=== PATIENT | female | born 1955 | race Hispanic/Latino ===

== ENCOUNTER → 2019-08-07 | Outpatient (CLI) | payer OTHER | END | disposition home or self-care (01) | LOC: RAH 13:26 | PROVIDERS: ATTEND Family Medicine | DX: Z12.31 Encounter for screening mammogram for malignant neoplasm of breast (principal) | CPT/HCPCS: 77067 ==

== ENCOUNTER → 2021-10-06 | Outpatient (CLI) | payer OTHER | END | disposition home or self-care (01) | LOC: RAH 09:01 | PROVIDERS: ATTEND Family Medicine | DX: Z12.31 Encounter for screening mammogram for malignant neoplasm of breast (principal) | CPT/HCPCS: 77067 ==

== ENCOUNTER → 2022-10-11 | Outpatient (CLI) | payer OTHER | END | disposition home or self-care (01) | LOC: RAH 10:27 | PROVIDERS: ATTEND Family Medicine | DX: Z12.31 Encounter for screening mammogram for malignant neoplasm of breast (principal); R92.1 Mammographic calcification found on diagnostic imaging of breast; Z98.890 Other specified postprocedural states | CPT/HCPCS: 77067 ==

== ENCOUNTER → 2023-12-05 | Outpatient (CLI) | payer OTHER | END | disposition home or self-care (01) | LOC: RAH 09:26 | PROVIDERS: ATTEND Family Medicine | DX: Z12.31 Encounter for screening mammogram for malignant neoplasm of breast (principal); R92.333 Mammographic heterogeneous density, bilateral breasts | CPT/HCPCS: 77067 ==

== ENCOUNTER 2024-10-26 09:09 | Observation (INO) | payer OTHER ==
[~2024-10-26] VITALS: Ht 165.1 cm; Wt 119.5 kg
[2024-10-26 09:59] VITALS: TEMP 101.1
[2024-10-26] MEDS: acetaMINOPHEN 500 MG TABLET PO ONE (09:59)
[2024-10-26 10:01] LABS: BASOPHILS # (AUTO) 0.09 K/uL (0.00-0.20); BASOPHILS % (AUTO) 0.5 % (0.0-5.0); EOSINOPHILS # (AUTO) 0.11 K/uL (0.00-0.70); EOSINOPHILS % (AUTO) 0.6 % (0.0-8.0); HEMATOCRIT 37.3 % (36-48); IMMATURE GRANULOCYTE ABSOLUTE 0.18 K/uL (0-1); LYMPHOCYTES # (AUTO) 1.2 K/uL (1.0-4.8); LYMPHOCYTES % (AUTO) 6.1 % (21.0-51.0); MEAN CORPUSCULAR HEMOGLOBIN 30.5 pg (27.0-33.0); MEAN CORPUSCULAR HGB CONC 33.5 g/dL (32.0-36.0); MONOCYTES # (AUTO) 1.2 K/uL (0.1-1.0); MONOCYTES % (AUTO) 5.9 % (3.0-13.0); NEUTROPHILS # (AUTO) 16.9 K/uL (1.8-7.7); PLATELET COUNT (AUTO) 300 K/uL (130-400); RED CELL DISTRIBUTION WIDTH 13.8 % (11.0-15.5); WHITE BLOOD COUNT (AUTO) 19.7 K/uL (4.8-10.8)
[2024-10-26 10:09] LABS: CREATININE 0.9 mg/dL (0.5-1.0); POTASSIUM 3.9 mmol/L (3.5-5.1)
[2024-10-26 10:10] LABS: RAPID GROUP A STREP negative (NEGATIVE)
[2024-10-26 10:12] LABS: SARS-CoV-2, RNA, NAAT NEGATIVE SARS CoV-2 (NEGATIVE)
[2024-10-26 10:19] LABS: INFLUENZA TYPE A Negative For Type A (NEGATIVE); INFLUENZA TYPE B Negative For Type B (NEGATIVE)
[2024-10-26] MEDS: 0.9%NACL 1000ML 1,000 ML IV ONE (10:40)
[2024-10-26 11:37] LABS: APPEARANCE,URINE CLEAR (CLEAR); BILIRUBIN,URINE NEGATIVE (NEGATIVE); COLOR,URINE YELLOW (YELLOW); GLUCOSE, URINE (UA) 300 mg/dL (NEGATIVE); KETONES,URINE 20 mg/dL (NEGATIVE); LEUKOCYTE ESTERASE ,URINE 250 Leu/uL (NEGATIVE); NITRATE,URINE NEGATIVE (NEGATIVE); OCCULT BLOOD,URINE NEGATIVE (NEGATIVE); PH,URINE 5.5 (5.0-8.0); PROTEIN,URINE NEGATIVE (NEGATIVE); UROBILINOGEN,URINE 0.2 mg/dL (0.2-1.0)
[2024-10-26 11:39] LABS: ADD UA MICROSCOPIC YES
[2024-10-26 11:40] LABS: BACTERIA,URINE RARE /HPF (None Seen); MUCUS,URINE RARE LPF (None Seen); RBC,URINE 0-1 /HPF (0-1); SQUAMOUS EPITHELIAL CELL,UR FEW /HPF (0-2)
--- NOTE | 2024-10-26 11:46 | ERN ---
General Chief Complaint: Fever Stated Complaint: HEADACHE, FEVER Time Seen by MD: 09:18 Source: patient History of Present Illness Initial Comments PATIENT IS A 69-YEAR-OLD FEMALE COMING IN TO BE EVALUATED FOR FEVER. PER PATIENT SHE HAS BEEN HAVING BODY ACHES HE HAS BEEN FOR A COUPLE OF DAYS. NO OTHER CURRENT COMPLAINT. Allergies: Coded Allergies: sulfamethoxazole (Unverified Allergy, Unknown, 10/26/24) trimethoprim (Unverified Allergy, Unknown, 10/26/24) Past Medical History Past Medical History: Asthma, Diabetes-Type II, High Cholesterol, Hypertension Past Surgical History: Other Surgical History Other: HERNIA ROS Dictation CONSTITUTIONAL: NO CHILLS, FEVER, NO WEAKNESS, NO DIAPHORESIS, NO MALAISE. HEAD/FACE: NO SIGNS OF TRAUMA. EENT: NO EYE PAIN, NO BLURRED VISION, NO TEARING, NO DOUBLE VISION, NO EAR PAIN, NO EAR DISCHARGE, NO NOSE PAIN, NO NASAL CONGESTION, NO THROAT PAIN, NO THROAT SWELLING, NO MOUTH PAIN. RESPIRATORY: NO COUGH, NO ORTHOPNEA, NO SOB, NO STRIDOR, NO WHEEZING. CARDIOVASCULAR: NO CHEST PAIN, NO EDEMA, NO PALPITATIONS, NO SYNCOPE. GASTROINTESTINAL/ABDOMINAL: NO ABDOMINAL PAIN, NO CONSTIPATION, NO DIARRHEA, NO NAUSEA, NO VOMITING. GENITOURINARY: NO ABNORMAL DISCHARGE, NO DYSURIA, NO FREQUENT URINATION, NO HEMATURIA. NO COMPLAINTS OF PAIN IN THE GENITALS. MUSCULOSKELETAL: NO BACK PAIN, NO GOUT, NO JOINT PAIN, NO JOINT SWELLING, NO MUSCLE PAIN, NO MUSCLE STIFFNESS, NO NECK PAIN. INTEGUMENTARY: NO CHANGE IN COLOR, NO CHANGE IN HAIR/NAILS, NO DRYNESS, NO LESION, NO LUMPS, NO RASH. NEUROLOGICAL/PSYCH: NO ANXIETY, NOT DEPRESSED, NO EMOTIONAL PROBLEM, NO HEADACHE, NO NUMBNESS, NO PRE-EXISTING DEFICIT, NO HISTORY OF SEIZURES, NO TREMORS, NO WEAKNESS. HEMATOLOGIC/LYMPHATIC: NOT ANEMIC, NO HISTORY OF BLOOD CLOTS, NO APPARENT BLEEDING, NO BRUISING, GLANDS NOT SWOLLEN. ALL SYSTEMS NEGATIVE, EXCEPT NOTED. Physical Exam Physical Exam Dictation VITAL SIGNS: REVIEWED. GENERAL APPEARANCE: ALERT, ORIENTED X3, NO ACUTE DISTRESS, OBESE. HEAD AND FACE: NON-TRAUMATIC. EYES: PERRL, PINK CONJUNCTIVAS, EYELID NO TRAUMA, ANTERIOR CHAMBER CLEAR. EARS: PINNAS INTACT AND NO SIGNS OF TRAUMA OR ERYTHEMA. EAR CANALS CLEAR AND NO DISCHARGE. TMS NO ERYTHEMA. NOSE: NO DISCHARGE, NO BLEEDING. OROPHARYNX: MOUTH NORMAL, TEETH NO CARIES, TONGUE PINK. PHARYNX CLEAR, NO ERYTHEMA. TONSILS NO EXUDATES, NO ABSCESSES NOTED. MUCOUS MEMBRANE MOIST. NECK: SUPPLE, NON-TENDER, NO THYROMEGALY, NO MASSES, NO JVD, NO BRUITS. BREAST: DEFERRED. CHEST: NO TENDERNESS, NO CREPITUS, NO PARADOXICAL MOVEMENT, NO RETRACTIONS. LUNGS: CLEAR, WELL-VENTILATED, SYMMETRIC, NO RALES, NO WHEEZING, NO RHONCHI, NO STRIDOR, GOOD BREATH SOUNDS BILATERALLY. HEART: REGULAR RATE, REGULAR RHYTHM, NO MURMUR, NO GALLOPS. VASCULAR: NO PERIPHERAL EDEMA. ABDOMEN: SOFT, POSITIVE BOWEL SOUNDS, NONDISTENDED, NO GUARDING, NONTENDER, NO REBOUND, NO MASSES NO HEPATOMEGALY, NO SPLENOMEGALY, NO STANLEY'S SIGN, NO HERNIAS. RECTAL: DEFERRED. GENITAL: DEFERRED. NEUROLOGICAL: NORMAL SPEECH, GROSS MOTOR FUNCTION INTACT, GROSS SENSORY FUNCTION INTACT. MUSCULOSKELETAL: NECK NONTENDER, FULL RANGE OF MOTION, BACK NONTENDER, FULL RANGE OF MOTION. EXTREMITIES: NONTENDER, FULL RANGE OF MOTION. SKIN: COLOR PINK, DRY, NO TURGOR, NO RASH, NO LACERATIONS, NO ABRASIONS, NO CONTUSIONS. LYMPHATICS: DEFERRED. Results Laboratory and Microbiology Lab and Micro Result Laboratory Tests Test 10/26/24 09:34 10/26/24 09:35 10/26/24 11:23 White Blood Count 19.7 K/uL (4.8-10.8) H Red Blood Count 4.10 MIL/uL (4.00-5.50) Hemoglobin 12.5 g/dL (12.0-16.0) Hematocrit 37.3 % (36-48) Mean Corpuscular Volume 91.0 fL (79-99) Mean Corpuscular Hemoglobin 30.5 pg (27.0-33.0) Mean Corpuscular Hemoglobin Concent 33.5 g/dL (32.0-36.0) Red Cell Distribution Width 13.8 % (11.0-15.5) Platelet Count 300 K/uL (130-400) Mean Platelet Volume 10.2 fL (7.5-10.5) Immature Granulocyte % (Auto) 0.9 % (0-1) Neutrophils (%) (Auto) 86.0 % (40.0-77.0) H Lymphocytes (%) (Auto) 6.1 % (21.0-51.0) L Monocytes (%) (Auto) 5.9 % (3.0-13.0) Eosinophils (%) (Auto) 0.6 % (0.0-8.0) Basophils (%) (Auto) 0.5 % (0.0-5.0) Neutrophils # (Auto) 16.9 K/uL (1.8-7.7) H Lymphocytes # (Auto) 1.2 K/uL (1.0-4.8) Monocytes # (Auto) 1.2 K/uL (0.1-1.0) H Eosinophils # (Auto) 0.11 K/uL (0.00-0.70) Basophils # (Auto) 0.09 K/uL (0.00-0.20) Absolute Immature Granulocyte (auto 0.18 K/uL (0-1) Nucleated Red Blood Cells 0.0 % (0.0-0.19) White Cell Morphology Comment See comments Sodium Level 138 mmol/L (136-145) Potassium Level 3.9 mmol/L (3.5-5.1) Chloride Level 103 mmol/L (101-111) Carbon Dioxide Level 25 mmol/L (21-32) Blood Urea Nitrogen 26 mg/dL (7-18) H Creatinine 0.9 mg/dL (0.5-1.0) Glomerular Filtration Rate Calc 68 mL/min (>90) Random Glucose 228 mg/dL (70-105) H Total Calcium 8.6 mg/dL (8.5-10.1) Influenza Type A Antigen Negative For Type A Influenza Type B Antigen Negative For Type B SARS-CoV-2, RNA, NAAT NEGATIVE SARS CoV-2 Group A Streptococcus Rapid negative (NEGATIVE) Urine Color YELLOW (YELLOW) Urine Appearance CLEAR (CLEAR) Urine pH 5.5 (5.0-8.0) Urine Specific [place] 1.020 (1.001-1.031) Urine Protein NEGATIVE mg/dL (NEGATIVE) Urine Glucose (UA) 300 mg/dL (NEGATIVE) H Urine Ketones 20 mg/dL (NEGATIVE) H Urine Occult Blood NEGATIVE (NEGATIVE) Urine Nitrate NEGATIVE (NEGATIVE) Urine Bilirubin NEGATIVE mg/dL (NEGATIVE) Urine Urobilinogen 0.2 mg/dL (0.2-1.0) Urine Leukocyte Esterase 250 [place]/uL (NEGATIVE) H Urine RBC 0-1 /HPF (0-1) Urine WBC 11-25 /HPF (0-1) H Urine Squamous Epithelial Cells FEW /HPF (0-2) Urine Bacteria RARE /HPF (None Seen) MDM MDM: DIFFERENTIAL DIAGNOSIS: SEPSIS, FEVER, RATIONALE: TESTS CONSIDERED AND ORDERED SECONDARY TO SHARED DECISION MAKING INCLUDE: LABS, ECG AND RADIOLOGY PREVIOUS OUTSIDE RECORDS REVIEWED: OLD ER VISITS. RISK OF COMPLICATION AND/OR MORBIDITY OR MORTALITY OF PATIENT MANAGEMENT: NONE MEDICATIONS-PER MEDICATION RECONCILIATION NEED FOR HOSPITALIZATION: PATIENT DOES MEET CRITERIA FOR HOSPITALIZATION. NEED FOR EMERGENCY MAJOR/MINOR SURGERY: NO THERE ARE NO SOCIAL CONCERNS WITH THIS PATIENT. PRESCRIPTION DRUG MANAGEMENT PRESCRIPTIONS WILL INCLUDE SYMPTOMATIC CARE PATIENT'S PRIOR EXTERNAL MEDICAL RECORDS FROM OTHER ER VISITS WERE REVIEWED BY ME INDICATED. PRIOR TESTING AND RESULTS FROM PREVIOUS VISITS WERE REVIEWED. PRIOR TESTS WERE TAKEN INTO ACCOUNT WITH MEDICAL DECISION MAKING AND RESOURCE UTILIZATION, INDEPENDENT HISTORIAN/HISTORIANS WERE USED TO OBTAIN COMPLETE MEDICAL HISTORY. I INDEPENDENTLY INTERPRETED THE TEST THAT WERE PERFORMED, RESULTS WERE REVIEWED BY ME AND CONSIDERED FINDINGS ON RADIOLOGY IF ORDERED. MEDICAL MANAGEMENT AND EXAMINATION INTERPRETATION DISCUSSIONS WERE HAD BY ME WITH OTHER QUALIFIED HEALTHCARE PROFESSIONALS INDICATED FOR THE PATIENT'S CARE. PATIENT WILL BE ADMITTED UNDER THE CARE OF [facility] FOR ONGOING MANAGEMENT. ED Course Orders Procedure Category Date Status Time Cbc With Differential LAB 10/26/24 Complete 09:21 Blood Cult JAVIER 10/26/24 In Process 09:21 Urinalysis Profile LAB 10/26/24 Complete 09:21 Basic Metabolic Panel LAB 10/26/24 Complete 09:40 Covid Rna Naat LAB 10/26/24 Complete 09:41 Rapid (Group A Strep) LAB 10/26/24 Complete 09:41 0.9%Nacl 1000ml (Ns PHA 10/26/24 Complete 1000ml) 10:00 Acetaminophen 500mg PHA 10/26/24 Complete Tab (Tylenol 500mg T 10:00 Influenza Type A & B, LAB 10/26/24 Complete Rapid 09:51 Chest 1vw RAD 10/26/24 Resulted 11:07 Culture Urine JAVIER 10/26/24 In Process 11:39 Ceftriaxone 1g Vial PHA 10/26/24 Complete (Rocephine 1g Inj) 12:00 Current Medications Medications (Trade) Dose Ordered Sig/Zahraa Route PRN Reason Start Time Stop Time Status Last Admin Dose Admin Acetaminophen (TYLenol 500MG TAB) 500 mg ONCE ONCE PO 10/26/24 10:00 10/26/24 10:01 DC 10/26/24 09:59 Ceftriaxone Sodium (ROCEphine 1G INJ) 1 gm ONCE ONCE IVPB 10/26/24 12:00 10/26/24 12:01 DC 10/26/24 12:13 Sodium Chloride 1,000 ml @ 0 mls/hr ONCE ONCE IV 10/26/24 10:00 10/26/24 10:01 DC 10/26/24 10:40 Vital Signs Date Time Temp Pulse Resp B/P (MAP) Pulse Ox O2 Delivery O2 Flow Rate FiO2 10/26/24 10:41 99.7 116 18 102/55 96 Room Air* 0 21 10/26/24 09:59 101.1 10/26/24 09:27 101.1 133 22 127/70 96 Room Air* 0 21 10/26/24 09:14 100.2 129 20 138/65 96 Room Air 0 Critical Care Note Comments CRITICAL CARE PROCEDURE NOTE AUTHORIZED AND PERFORMED BY: ME TOTAL CRITICAL CARE TIME: APPROXIMATELY 36 MINUTES DUE TO A HIGH PROBABILITY OF CLINICALLY SIGNIFICANT, LIFE THREATENING DETERIORATION, THE PATIENT REQUIRED MY HIGHEST LEVEL OF PREPAREDNESS TO INTERVENE EMERGENTLY AND I PERSONALLY SPENT THIS CRITICAL CARE TIME DIRECTLY AND PERSONALLY MANAGING THE PATIENT. THIS CRITICAL CARE TIME INCLUDED OBTAINING A HISTORY; EXAMINING THE PATIENT; PULSE OXIMETRY; ORDERING AND REVIEW OF STUDIES; ARRANGING URGENT TREATMENT WITH DEVELOPMENT OF A MANAGEMENT PLAN; EVALUATION OF PATIENT'S RESPONSE TO TREATMENT; FREQUENT REASSESSMENT; AND, DISCUSSIONS WITH OTHER PROVIDERS. THIS CRITICAL CARE TIME WAS PERFORMED TO ASSESS AND MANAGE THE HIGH PROBABILITY OF IMMINENT, LIFE-THREATENING DETERIORATION THAT COULD RESULT IN MULTI-ORGAN FAILURE. IT WAS EXCLUSIVE OF SEPARATELY BILLABLE PROCEDURES AND TREATING OTHER PATIENTS AND TEACHING TIME. PLEASE SEE MDM SECTION AND THE REST OF THE NOTE FOR FURTHER INFORMATION ON PATIENT ASSESSMENT AND TREATMENT. DX & DISP Disposition: Inpatient Decision to Admit Time: 13:23 Departure Impression: Primary Impression: Sepsis Additional Impression: UTI (urinary tract infection) Condition: Stable Referrals: JHONNY RILEY DO (PCP) GUSTAVO DEUTSCH MD Oct 26, 2024 11:45
--- NOTE | 2024-10-26 12:02 | HMCIMG ---
CHEST 1VW REASON: FEVER COMPARISON: None. FINDINGS: Single view of the chest was obtained. Lungs are clear. Heart size is normal. There is no pulmonary vascular congestion. Mediastinum and bony thorax appear unremarkable. IMPRESSION: 1. Normal single view chest x-ray.
[2024-10-26] MEDS: cefTRIAXone 1G VIAL IVPB ONE (12:13)
[2024-10-26] MEDS ORDERED: LACTULOSE 20 GM/30 ML UDCUP PO PRN (13:30)
[2024-10-26] MEDS ORDERED: DiphenhydrAMINE HCL 25 MG CAPSULE PO PRN (13:30)
[2024-10-26] MEDS ORDERED: ARTIFICAL TEARS SOL 15 ML OP PRN (13:30)
[2024-10-26] MEDS ORDERED: MAG/ALUM/SIMETH 30 ML UDCUP PO PRN (13:30)
[2024-10-26] MEDS ORDERED: acetaMINOPHEN 325 MG TAB PO PRN (13:30)
[2024-10-26] MEDS ORDERED: guaiFENesin-DM 200/20MG 10ML PO PRN (13:30)
[2024-10-26] MEDS ORDERED: BENZOCAINE/MENTH/CETYLPYRD CL 1 EACH LOZENGE MM PRN (13:30)
[2024-10-26] MEDS ORDERED: doCUSate SODIUM 100 MG CAP PO PRN (13:30)
[2024-10-26] MEDS ORDERED: polyETHYLene GLYCol 3350 17 GM POWD.PACK PO PRN (13:30)
[2024-10-26] MEDS ORDERED: guaiFENesin SUGAR-FREE 100 MG/5 ML UDCUP PO PRN (13:30)
[2024-10-26] MEDS ORDERED: ondanSETRON 4MG INJ IV PRN (13:30)
[2024-10-26] MEDS ORDERED: LIDOCAINE HCL 2% VISCOUS 30 ML, MAG/ALUM/SIMETH 30ML 30 ML, DICYCLOMINE HCL 20 MG PO PRN (13:30)
[2024-10-26] MEDS ORDERED: DiphenhydrAMINE HCL 50 MG/ML VIAL IV PRN (13:30)
[2024-10-26] MEDS ORDERED: NITROGLYCERIN 0.4 MG SL TAB SL PRN (13:30)
[2024-10-26] MEDS ORDERED: LIDOCAINE HCL 2% VISCOUS 15 ML UDCUP PO PRN ×2 (14:00)
[2024-10-26] MEDS ORDERED: DICYCLOMINE HCL 10 MG/5 ML ML PO PRN ×2 (14:00)
[2024-10-26 14:27] LABS: THYROID STIMULATING HORMONE 1.04 uIU/mL (0.36-3.74)
--- NOTE | 2024-10-26 14:56 | HP ---
[facility] HISTORY & PHYSICAL Date Patient Seen: Oct 26, 2024 Time of Visit: 14:47 Supervising Physician: [Dr. Dodson] Primary Care Physician: [Dr. Marybel Mueller] Outpatient Specialists: [ ] Inpatient Consults: [ ] PROBLEM LIST: Sepsis without septic shock, POA Acute complicated cystitis, POA Febrile illness, POA Leukocytosis, POA Urinary incontinence, treated outpatient Insulin dependent type 2 diabetes mellitus, uncontrolled GERD Hypertension Hyperlipidemia Plan: Start Rocephin 2 g daily Start NS at 75 mL an hour Order lactic acid, procalcitonin Follow blood and urine culture, adjust antibiotics as needed Resume home meds once available Repeat labs in AM Further management per hospital course DCP home once medically cleared HPI: [This is a 69-year-old female with a history of diabetes, hypertension, hyperlipidemia who presents to the ED for evaluation of fever, body aches and chills of onset at 3:00 a.m. today. Patient reported a headache that was relieved with Tylenol in the ED. she had associated nausea but no vomiting. Patient was found septic with leukocytosis with a WBC of 19 on admission. Septic protocol initiated in ED. COVID, flu and strep screens were negative. Her urinalysis showed leukocyte esterase, pending blood and urine cultures. She continues with treatment per septic protocol. Upon evaluation, patient appears weak, complained of headache and some nausea but otherwise denied vomiting or abdominal pain.] PAST MEDICAL HX: see above PAST SURGICAL HX: noncontributory SOCIAL HISTORY: No tobacco, ETOH, or illicit drug use Coded Allergies: sulfamethoxazole (Unverified Allergy, Unknown, 10/26/24) trimethoprim (Unverified Allergy, Unknown, 10/26/24) REVIEW OF SYSTEMS: 12 point ROS reviewed with patient. Pertinent positives mentioned above. Ot herwise negative. PHYSICAL EXAM: GENERAL: alert, weak, awake oriented x 3, morbidly obese HEENT: EOMI, Sclera non icteric, moist mucosa NECK: Supple, no JVD, trachea midline LUNGS: Clear breath sounds bilaterally. No wheezes HEART: Regular rate and rhythm. Normal S1 and S2, without murmurs ABD: Abdomen soft, suprapubic tenderness. Bowel sounds present EXT: No clubbing cyanosis or edema NEURO: Alert and oriented to person, follows commands Vital Signs (last 8hr) Date Time Temp Pulse Resp B/P (MAP) Pulse Ox O2 Delivery O2 Flow Rate FiO2 10/26/24 10:41 99.7 116 18 102/55 96 Room Air* 0 10/26/24 09:59 101.1 10/26/24 09:27 101.1 133 22 127/70 96 Room Air* 0 10/26/24 09:14 100.2 129 20 138/65 96 Room Air 0 LABS: Hematology Labs: Test 10/26/24 09:34 Range/Units White Blood Count 19.7 H 4.8-10.8 K/uL Red Blood Count 4.10 4.00-5.50 MIL/uL Hemoglobin 12.5 12.0-16.0 g/dL Hematocrit 37.3 36-48 % Mean Corpuscular Volume 91.0 79-99 fL Mean Corpuscular Hemoglobin 30.5 27.0-33.0 pg Mean Corpuscular Hemoglobin Concent 33.5 32.0-36.0 g/dL Red Cell Distribution Width 13.8 11.0-15.5 % Platelet Count 300 130-400 K/uL Mean Platelet Volume 10.2 7.5-10.5 fL Immature Granulocyte % (Auto) 0.9 0-1 % Neutrophils (%) (Auto) 86.0 H 40.0-77.0 % Lymphocytes (%) (Auto) 6.1 L 21.0-51.0 % Monocytes (%) (Auto) 5.9 3.0-13.0 % Eosinophils (%) (Auto) 0.6 0.0-8.0 % Basophils (%) (Auto) 0.5 0.0-5.0 % Neutrophils # (Auto) 16.9 H 1.8-7.7 K/uL Lymphocytes # (Auto) 1.2 1.0-4.8 K/uL Monocytes # (Auto) 1.2 H 0.1-1.0 K/uL Eosinophils # (Auto) 0.11 0.00-0.70 K/uL Basophils # (Auto) 0.09 0.00-0.20 K/uL Absolute Immature Granulocyte (auto 0.18 0-1 K/uL Nucleated Red Blood Cells 0.0 0.0-0.19 % White Cell Morphology Comment See comments Chemistry Labs: Test 10/26/24 13:53 10/26/24 09:34 Range/Units Lactic Acid Level 2.2 0.8-2.5 mmol/L Procalcitonin 0.18 0.05-0.5 ng/mL Thyroid Stimulating Hormone (TSH) 1.04 0.36-3.74 uIU/mL Sodium Level 138 136-145 mmol/L Potassium Level 3.9 3.5-5.1 mmol/L Chloride Level 103 101-111 mmol/L Carbon Dioxide Level 25 21-32 mmol/L Blood Urea Nitrogen 26 H 7-18 mg/dL Creatinine 0.9 0.5-1.0 mg/dL Glomerular Filtration Rate Calc 68 >90 mL/min Random Glucose 228 H 70-105 mg/dL Total Calcium 8.6 8.5-10.1 mg/dL DIAGNOSTICS / RADIOLOGY RESULTS: [ ] PLAN NEURO: Minimize central acting medications as possible. Maintain fall precautions, adequate lighting during the day PULMONARY: Supplemental 02 as needed. Maintain aspiration precautions at all times CARDIOVASCULAR: Follow hemodynamics. Vital signs per facility protocol GI & NUTRITION: Continue with nutritional support. Continue stool softeners and laxatives as needed. KIDNEYS & ELECTROLYTES: Strict monitoring of intake, output and overall fluid balance. Avoid nephrotoxic medications to the extent possible. Medications to be dosed according to renal function. Monitor electrolytes and replace as needed ENDOCRINE: Maintain blood glucose between 100-180 at all times. Hypoglycemia protocol in place INFECTIOUS DISEASE: Trend temperature, WBC and procalcitonin level Follow cultures, deescalate antibiotics as soon as possible. Panculture if new onset fever ONCOLOGY/HEMATOLOGY/COAGULATION: Monitor for s/s of bleeding Monitor hemoglobin, coagulation studies as needed SKIN: Pressure ulcer prevention per facility protocol Specialty mattress ORTHO/REHAB: Continue PT/OT Prophylaxis: Continue GI and DVT prophylaxis Code Status: Full Resuscitation Disposition: TBD Other: Total patient care time exceeds 35 minutes excluding all procedures. CHELO COHEN Oct 26, 2024 14:56
[2024-10-26] MEDS: cefTRIAXone 2GM VIAL IVPB SCH (15:32)
[2024-10-26] MEDS: ibuPROFEN 800 MG TAB PO PRN (16:44)
[2024-10-26] MEDS: 0.9%NACL 1000ML 1,000 ML IV SCH (16:53)
--- NOTE | 2024-10-26 16:57 | NUR ---
bs: 201
[2024-10-26] MEDS: INSULIN LISpro 100 UNIT/ML 3ML SQ SCH (17:08)
[2024-10-26] MEDS ORDERED: OMEP40CA21 PO (20:15)
[2024-10-26] MEDS ORDERED: SITA100T12 PO (20:15)
[2024-10-26] MEDS ORDERED: ASCO100031 PO (20:15)
[2024-10-26] MEDS ORDERED: HUM100IN SQ (20:15)
[2024-10-26] MEDS ORDERED: LOSA100T59 PO (20:15)
[2024-10-26] MEDS ORDERED: ICOS1CAP2 PO (20:15)
[2024-10-26] MEDS ORDERED: TAMS-55 PO (20:15)
[2024-10-26] MEDS ORDERED: CYAN250010 PO (20:15)
[2024-10-26] MEDS ORDERED: HYDR25TA PO (20:15)
[2024-10-26] MEDS ORDERED: PREG75 PO (20:15)
[2024-10-26] MEDS ORDERED: GLIP10TA16 PO (20:15)
[2024-10-26] MEDS ORDERED: CALC-910 PO (20:15)
[2024-10-26] MEDS ORDERED: METF-446 PO (20:15)
[2024-10-26] MEDS ORDERED: MULT-1367 PO (20:15)
[2024-10-26] MEDS ORDERED: DICL75TA5 PO (20:15)
[2024-10-26] MEDS ORDERED: LOVA10TA2 PO (20:15)
[2024-10-26] MEDS ORDERED: MIRA50TA PO (20:15)
[2024-10-26] MEDS ORDERED: FAMOTIDINE 20MG VIAL IV SCH (21:00)
--- NOTE | 2024-10-26 22:03 | NUR ---
RECEIVED REPORT FROM [facility] ED NURSE, AWAITING PATIENT ARRIVAL TO UNIT. ALL QUESTIONS ANSWERED.
[2024-10-26 22:20] VITALS: BP 129/64; PULSE 84; RESP 19; TEMP 97.9; O2SAT 96
--- NOTE | 2024-10-26 22:20 | NUR ---
PATIENT ARRIVED TO UNIT VIA STRETCHER, SELF TRANSFERED TO BED. AAOX4. EDUCATED ON SAFETY PRECAUTIONS, BED SETTINGS AND CALL JUNIOR. ALL QUESTIONS ANSWERED
--- NOTE | 2024-10-26 23:00 | NUR ---
PATIENT REPORTED SCRATCHING HER BUTTOCKS AND CAUSING A SMALL OPEN AREA SCRATCH LIKE TO RT.SIDE. PATIENT ALSO REPORTED HAVING AN ABSCESS LIKE AREA TO LABIA, PER PATIENT SHES HAD AN ABSCESS BEFORE IN THE PAST. UPON ASSESSMENT NOTED SMALL FLAT OPEN AREA NON FILLED, NO INDURATION TO LABIA, PATIENT REPORTED AREA USED TO BE FILLED AND MASS LIKE BUT DOES NOT RECALL DRAINAGE FROM SITE. DENIES PAIN. PATIENT WITH FOUL ODOR TO URINE , NO REDNESS TO AREA. WILL CONTINUE TO MONITOR.
[2024-10-27] MEDS: acetaMINOPHEN 325 MG TAB PO PRN (01:13)
[2024-10-27 03:58] VITALS: BP 117/56; PULSE 88; RESP 19; TEMP 97.8
--- NOTE | 2024-10-27 05:45 | NUR ---
PATIENT NOTED TO EXACERBATE WITH ACTIVITY, DOES NOT DESATURATE, SPO2 REMAINS AT 97%. DENIES FEELING SOB, ONLY TIREDNESS. CONTINUES WITH BLE AND BUE EDEMA. VOIDING WITH NO DIFFICULTIES, DARK YELLOW URINE. MILD FOUL ODOR, DENIES PAIN.
[2024-10-27 07:20] LABS: BASOPHILS # (AUTO) 0.06 K/uL (0.00-0.20); BASOPHILS % (AUTO) 0.6 % (0.0-5.0); EOSINOPHILS # (AUTO) 0.43 K/uL (0.00-0.70); HEMATOCRIT 32.5 % (36-48); IMMATURE GRANULOCYTE ABSOLUTE 0.05 K/uL (0-1); LYMPHOCYTES # (AUTO) 2.3 K/uL (1.0-4.8); LYMPHOCYTES % (AUTO) 21.8 % (21.0-51.0); MEAN CORPUSCULAR HEMOGLOBIN 30.5 pg (27.0-33.0); MEAN CORPUSCULAR HGB CONC 33.2 g/dL (32.0-36.0); MEAN CORPUSCULAR VOLUME 91.8 fL (79-99); MONOCYTES # (AUTO) 0.9 K/uL (0.1-1.0); MONOCYTES % (AUTO) 8.2 % (3.0-13.0); NEUTROPHILS % (AUTO) 64.9 % (40.0-77.0); PLATELET COUNT (AUTO) 246 K/uL (130-400); RED BLOOD CELL COUNT(AUTO) 3.54 MIL/uL (4.00-5.50); RED CELL DISTRIBUTION WIDTH 14.1 % (11.0-15.5); WHITE BLOOD COUNT (AUTO) 10.8 K/uL (4.8-10.8)
[2024-10-27] MEDS: INSULIN GLARgine 100 UNITS/ML 10 ML VIAL SQ SCH (07:26)
[2024-10-27 07:27] LABS: HEMOGLOBIN A1C 7.6 % (4.0-6.0)
[2024-10-27 07:28] LABS: CREATININE 0.8 mg/dL (0.5-1.0); POTASSIUM 3.8 mmol/L (3.5-5.1)
[2024-10-27 08:04] VITALS: BP 114/62; PULSE 86; RESP 18; TEMP 98.2
[2024-10-27] MEDS: MULTIVITAMIN TABLET PO SCH (08:12)
[2024-10-27] MEDS: ASCORBIC ACID 500 MG TAB PO SCH (08:12)
[2024-10-27] MEDS: hydroCHLOROthiazide 25 MG TABLET PO SCH (08:14)
[2024-10-27] MEDS: PANTOPrazole 40 MG TAB DR PO SCH (08:14)
[2024-10-27] MEDS: pregABALin 75 MG CAPSULE PO SCH (08:14)
[2024-10-27] MEDS: LoSARTan 100 MG TABLET PO SCH (08:15)
[2024-10-27] MEDS: CYANOCOBALAMIN (VITAMIN B-12) 1,000 MCG TABLET PO SCH (08:16)
[2024-10-27] MEDS: VITAMIN D3 PO SCH (08:18)
[2024-10-27] MEDS: ICOSAPENT ETHYL PO SCH (08:18)
[2024-10-27] MEDS: CALCIUM CITRATE PO SCH (08:18)
[2024-10-27] MEDS: tamSULOsin HCL 0.4 MG CAP.ER.24H PO SCH (08:19)
[2024-10-27 08:21] VITALS: O2SAT 97
[2024-10-27] MEDS ORDERED: PoTASSium chloRIDE 20MEQ ER 20 MEQ ERTAB PO PRN (08:30)
[2024-10-27] MEDS ORDERED: PoTASSium chloRIDE 20MEQ/100ML 100 ML IV PRN (08:30)
[2024-10-27] MEDS ORDERED: PoTASSium chl 10% ELIXIR 20MEQ 20 MEQ/15 ML UDCUP PO PRN (08:30)
[2024-10-27] MEDS ORDERED: FAMOTIDINE 20MG TAB PO SCH (09:00)
[2024-10-27 11:22] VITALS: BP 126/67; PULSE 83; RESP 18; TEMP 98.2
--- NOTE | 2024-10-27 12:02 | NUR ---
DCP: HOME Pt currently lives with dgt Yoly Lundberg [phone]. Pt does not have any insecurities with food, group home, and/or utilities. Pt states that she currently does not have DME but is trying to get a walker to assist her and she has a shower chair at home. Pt has a provider from [facility] that goes to her home 4 hrs a day to assist with ADLs and home management. PCP is Marybel Mueller and uses [facility] for any RX needs. At [place] pt will go home and family will assist with transportation. Addendum: 10/27/24 at 1206 by JEISON MENJIVAR SS Amended: Links added.
[2024-10-27] MEDS ORDERED: CEFD300C3 PO (12:59)
--- NOTE | 2024-10-27 13:03 | DS ---
[facility] DISCHARGE SUMMARY Date Patient Seen: Oct 27, 2024 Time of Visit: 13:00 Supervising Physician: Dr Allen Primary Care Physician: [Dr. Marybel Mueller] Outpatient Specialists: [ ] Inpatient Consults: [ ] PROBLEM LIST: Sepsis without septic shock, POA resolved Acute complicated cystitis, POA resolved Febrile illness, POA Leukocytosis, POA Urinary incontinence, treated outpatient Insulin dependent type 2 diabetes mellitus, uncontrolled GERD Hypertension Hyperlipidemia HOSPITAL COURSE: HPI (per admitting provider) [This is a 69-year-old female with a history of diabetes, hypertension, hyperlipidemia who presents to the ED for evaluation of fever, body aches and c hills of onset at 3:00 a.m. today. Patient reported a headache that was relieved with Tylenol in the ED. she had associated nausea but no vomiting. Patient was found septic with leukocytosis with a WBC of 19 on admission. Septic protocol initiated in ED. COVID, flu and strep screens were negative. Her urinalysis showed leukocyte esterase, pending blood and urine cultures. She continues with treatment per septic protocol. Upon evaluation, patient appears weak, complained of headache and some nausea but otherwise denied vomiting or abdominal pain Today patient is seen sitting up in bed with no signs of acute distress. Patient's white count has trended down within normal limits. Patient remains on room air denies dyspnea. Patient denies chest discomfort or chest pain at this time. No acute changes reported overnight. Patient's blood cultures are negative. Patient's urine culture showed less than [id number] CFUs. Patient has been advised to follow up with PCP in the next 1-2 days. Patient has been advised to continue oral antibiotics as prescribed. Vital signs are stable. Labs are within normal limits. Education regarding current diagnosis been provided to the patient. All questions have been answered. Patient to be discharged home. The patient was treated for the following problems: Sepsis without septic shock, POA resolved Acute complicated cystitis, POA resolved Febrile illness, POA Leukocytosis, POA Urinary incontinence, treated outpatient Insulin dependent type 2 diabetes mellitus, uncontrolled GERD Hypertension Hyperlipidemia ACTIVE PROBLEM LIST FOR THE HOSPITALIZATION: CHRONIC PROBLEMS: continue previous management per PCP unless otherwise indicated SPRAY PILOT FINDINGS/RECOMMENDATIONS: [ ] PROCEDURES: as mentioned above DISCHARGE MEDICATIONS: See DC med rec Pt hemodynamically stable and afebrile at time of discharge. PCP notified of patients admission, hospital course and discharge. New Medications: Cefdinir (Cefdinir) 300 Mg Capsule 1 CAP PO BID for 7 Days, #14 CAP 0 Refills Continued Medications: Ascorbic Acid (Vitamin C) 1,000 Mg Tablet 1 TAB PO DAILY for 15 Days, #15 TAB 0 Refills DIRECTED Calcium Citrate/Vitamin D3 (Citracal + D Maximum Caplet) 315MG-6.25 Tablet 1 TAB PO DAILY for 30 Days, #90 TAB 0 Refills Cyanocobalamin (Vitamin B-12) (Vitamin B12) 2,500 Mcg Tablet 1 TAB PO DAILY for 30 Days, #30 TAB 0 Refills Diclofenac Sodium (Diclofenac Sodium) 75 Mg Tablet.dr 1 TAB PO BID PRN for PAIN for 30 Days, #60 TAB 0 Refills Glipizide (Glipizide) 10 Mg Tablet 1 TAB PO BID for 30 Days, #60 TAB 0 Refills Hum Insulin NPH/Reg Insulin Hm (Humulin 70/30 Kwikpen) 100 Unit/Ml (70-30) Insuln.pen 80 UNITS SQ BID, SYRINGE Hydrochlorothiazide (Hydrochlorothiazide) 25 Mg Tablet 1 TAB PO BID for 30 Days, #30 TAB 0 Refills Icosapent Ethyl (Icosapent Ethyl) 1 Gram Capsule 2 CAP PO BID for 30 Days, #120 CAP 0 Refills Losartan Potassium (Losartan Potassium) 100 Mg Tablet 1 TAB PO DAILY for 30 Days, #30 TAB 0 Refills Lovastatin (Lovastatin) 10 Mg Tablet 1 TAB PO HS for 30 Days, #30 TAB 0 Refills Metformin HCl (Metformin HCl) 1,000 Mg Tablet 1 TAB PO BID for 30 Days, #60 TAB 0 Refills Mirabegron (Myrbetriq) 50 Mg Tab.er.24h 1 TAB PO DAILY for 30 Days, #30 TAB 0 Refills Multivitamin (Multivitamin) 1 Each Tablet 1 TAB PO DAILY for 30 Days, #30 TAB 0 Refills Omeprazole (Omeprazole) 40 Mg Capsule.dr 1 CAP PO DAILY for 30 Days, #30 CAP 0 Refills Pregabalin (Lyrica) 75 Mg Cap 1 CAP PO BID for 30 Days, #60 CAP 0 Refills Sitagliptin Phosphate (Januvia) 100 Mg Tablet 1 TAB PO DAILY for 30 Days, #30 TAB 0 Refills Tamsulosin HCl (Flomax) 0.4 Mg Cap.er.24h 1 CAP PO DAILY for 30 Days, #30 CAP 0 Refills PHYSICAL EXAM: GENERAL: alert, weak, awake oriented x 3, morbidly obese HEENT: EOMI, Sclera non icteric, moist mucosa NECK: Supple, no JVD, trachea midline LUNGS: Clear breath sounds bilaterally. No wheezes HEART: Regular rate and rhythm. Normal S1 and S2, without murmurs ABD: Abdomen soft, suprapubic tenderness. Bowel sounds present EXT: No clubbing cyanosis or edema NEURO: Alert and oriented to person, follows commands FOLLOW-UP: Follow-up with PCP in 2-3 days RECOMMENDATIONS: See Discharge Instructions This case was seen and discussed with my supervising physician. More than 30 minutes spent on discharge process, including evaluation of the patient, discussion with nursing staff, medication reconciliation and follow-up appointments ATTESTATION BY PHYSICIAN I have seen and examined the patient. I reviewed the documentation, medical decision making, and treatment plan as noted by the mid-level provider above. I agree with the findings and plan of care. Astrid Allen MD, ECTOR N NP Oct 27, 2024 13:03
[2024-10-27 15:48] VITALS: BP 117/64; PULSE 86; RESP 18; TEMP 98.2
--- NOTE | 2024-10-27 18:30 | NUR ---
Discharge Pt was educated on infection control & sepsis how to self care and after care at home. IV was removed without complications. Pt verbalized understanding & denied needing further assistance. Pt was transported to the main entrance via W/C by VP [employer]ODUCT MANAGEMENT. No s/s of distress noted.
[2024-10-27] MEDS ORDERED: atorVAStatin 10 MG TABLET PO SCH (21:00)
== END 2024-10-27 18:30 | disposition home or self-care (01) ==
LOC: EDH 09:09 → INTOOBSV 09:10 → EDHIP 09:10 → OBSVTOIN 09:10 → 4AH 22:05
PROVIDERS: ADMIT Internal Medicine; ATTEND Internal Medicine
DX: E11.65 Type 2 diabetes mellitus with hyperglycemia (principal); Z20.822 Contact with and (suspected) exposure to COVID-19; D72.829 Elevated white blood cell count, unspecified; R32 Unspecified urinary incontinence; K21.9 Gastro-esophageal reflux disease without esophagitis; E78.5 Hyperlipidemia, unspecified; I10 Essential (primary) hypertension; J45.909 Unspecified asthma, uncomplicated; R50.9 Fever, unspecified; Z88.2 Allergy status to sulfonamides; Z88.5 Allergy status to narcotic agent; Z79.899 Other long term (current) drug therapy
CPT/HCPCS: 96361 ×2; 96365; 84443; 80048 ×2; 85025 ×2; 87040 ×2; 87086; 87880; 87804 ×2; 82948 ×5; 83605 ×3; 81001; 36415 ×2; 87635; 71045; 99291; 84145; 96366; 83036; J7030 ×2; J0696 ×2; G0378 ×4

== ENCOUNTER → 2024-12-07 | Outpatient (CLI) | payer OTHER ==
[~2024-12-07] MED LIST: ASCO100031 PO; CALC-910 PO; CEFD300C3 PO; CYAN250010 PO; DICL75TA5 PO; GLIP10TA16 PO; HUM100IN SQ; HYDR25TA PO; ICOS1CAP2 PO; LOSA100T59 PO; LOVA10TA2 PO; METF-446 PO; MIRA50TA PO; MULT-1367 PO; OMEP40CA21 PO; PREG75 PO; SITA100T12 PO; TAMS-55 PO
== END | disposition home or self-care (01) ==
LOC: RAH 08:48
PROVIDERS: ATTEND Family Medicine
DX: Z12.31 Encounter for screening mammogram for malignant neoplasm of breast (principal)
CPT/HCPCS: 77063; 77067

== ENCOUNTER → 2025-01-01 | Outpatient (CLI) | payer OTHER ==
[~2025-01-01] MED LIST changes: -ASCO100031 PO; +ASCO10004 PO
--- NOTE | 2025-01-04 14:17 | HMCIMG ---
Right BREAST ULTRASOUND: Clinical history: Follow-up for mammogram from 12/05/2023. Finding: Real-time examination of the [right breast demonstrates homogeneous echotexture throughout the breast without evidence of focal solid or cystic masses. The radial scar seen on the mammogram is not seen on the ultrasound. There are multiple small benign-appearing right axillary lymph nodes. IMPRESSION: Radial scar seen on the mammogram is not seen on the ultrasound. I would recommend surgical intervention for further workup. CATEGORY 4: SUSPICIOUS ABNORMALITY. BIOPSY SHOULD BE CONSIDERED Recommend monthly self breast exam as well as annual clinical examination. A negative x-ray should not delay biopsy if a dominant or clinically suspicious mass is present, since 8-10% of cancers are not identified by mammography. Dense breasts particularly, may obscure an underlying neoplasm. Some of these may be detected clinically and therefore, clinical examination is an essential part of breast evaluation.
--- NOTE | 2025-01-04 14:21 | HMCIMG ---
DIGITAL right DIAGNOSTIC MAMMOGRAM Technique: The digital mammographic examination right breast in craniocaudal, mediolateral oblique views along with CAD was obtained. Ultrasound the right breast was also obtained. History: This is a 69 years year-old female for follow-up for mammogram from 12/07/2024. Patient has no family history of breast cancer. Patient has no complaint Reference:Prior mammogram from 12/07/2024, 12/05/2023, 10/11/2022, Breast composition: Breast composition C: The breasts are heterogeneously dense, which may obscure small masses. Finding: The digital mammographic examination of right breast in craniocaudal and mediolateral oblique view along with CAD demonstrates moderately heterogeneously nodular dense. There is a radial scar seen in the right breast upper inner quadrant. There are scattered solitary benign macrocalcification seen in both breasts. There is benign vascular calcification suggesting of atherosclerotic changes.. There is no evidence of any dendritic mass, cluster microcalcification or architectural distortion. The retromammary fat appears to be normal. IMPRESSION: Radial scar seen in the right breast upper inner quadrant. This is not well seen on the ultrasound. I would recommend further surgical consultation.. FINAL ASSESSMENT: ACR: BI-RAD -4. Suspicious: Finding(s) without all the characteristics morphology of breast cancer but indicatingadefine probability of being malignant: biopsy should be considered. NOTE: IF A WORK-UP OF THIS PATIENT LEADS TO A BIOPSY, PLEASE FORWARD A COPY OF THE PATHOLOGY REPORT TO OUR OFFICE REQUIRED BY [facility] FEBRUARY 24, 1994. A NEGATIVE MAMMOGRAM SHOULD NOT PRECLUDE BIOPSY OF A CLINICALLY PALPABLE SUSPICIOUS MASS, 10% OF BREAST CANCERS ARE MAMMOGRAPHICALLY OCCULT. THIS MAMMOGRAPHY FACILITY IS FULLY ACCREDITED BY THE FOOD AND DRUG [employer]ATION (FDA). THANK YOU FOR THIS REFERRAL.
== END | disposition home or self-care (01) ==
LOC: RAH 09:19
PROVIDERS: ATTEND Family Medicine
DX: R92.331 Mammographic heterogeneous density, right breast (principal); R92.8 Other abnormal and inconclusive findings on diagnostic imaging of breast; N64.89 Other specified disorders of breast
CPT/HCPCS: 76641; 77065

== ENCOUNTER → 2025-05-24 | Outpatient (CLI) | payer OTHER ==
[~2025-05-24] MED LIST changes: +GADOTERATE MEGLUMINE 10 MMOL/20 ML VIAL IV ONE
--- NOTE | 2025-05-26 10:38 | HMCIMG ---
INDICATION: Screening TECHNIQUE Precontrast axial T1 and axial T2 fat saturation sequences were obtained. Dynamic postcontrast axial imaging were obtained. Subtraction images and MIP reconstructions were generated. IV Contrast: 20 mL Clariscan COMPARISON Mammogram, ultrasound 01/01/2025 FINDINGS Amount of fibroglandular tissue: Heterogeneous fibroglandular tissue. Background parenchymal enhancement: Minimal. Right breast: Postsurgical changes in the upper inner quadrant. No suspicious mass or non-mass enhancement. Left breast: No suspicious mass or non-mass enhancement. Lymph nodes: Unremarkable. Other tissues: Unremarkable. IMPRESSION No MRI evidence of malignancy. BI-RADS 2: Benign. Recommendation: Continued imaging surveillance per high risk clinical protocol. /[place]
== END ==
LOC: RAH 11:29
PROVIDERS: ATTEND Nurse Practitioner Family
DX: R92.323 Mammographic fibroglandular density, bilateral breasts (principal); R92.8 Other abnormal and inconclusive findings on diagnostic imaging of breast
CPT/HCPCS: 77049; A9575